=== PATIENT | male | born 1940 | race Caucasian/White ===

== ENCOUNTER 2024-10-11 07:25 | Day surgery (SDC) | payer MEDICARE, BC ==
[2024-10-11] MEDS: Lactated Ringers 1,000 ML IV SCH (07:48)
[2024-10-11] MEDS ORDERED: Propofol 200 MG/20 ML SDV ONE ×3 (08:26→10:12)
[2024-10-11] MEDS ORDERED: Midazolam 1 MG/ML 2 ML SDV ONE (09:15)
[2024-10-11] MEDS ORDERED: fentaNYL 100 MCG/2 ML SDV ONE (09:15)
[2024-10-11] MEDS ORDERED: Lidocaine 4% 5 ML Amp ONE (09:15)
[2024-10-11] MEDS ORDERED: ePHEDrine 50 MG/ML SDV ONE (10:00)
[2024-10-11] MEDS ORDERED: Simethicone Drops 40 MG/0.6 ML 30 ML Bottle ONE (10:01)
[2024-11-08] MEDS ORDERED: Lactated Ringers 1,000 ML IV SCH (07:00)
== END 2024-10-11 13:47 | disposition home or self-care (01) ==
LOC: VM.SDS 07:25
PROVIDERS: ATTEND Family Medicine
DX: Z12.11 Encounter for screening for malignant neoplasm of colon (principal); K29.50 Unspecified chronic gastritis without bleeding; K57.30 Diverticulosis of large intestine without perforation or abscess without bleeding; K44.9 Diaphragmatic hernia without obstruction or gangrene; I10 Essential (primary) hypertension; I48.0 Paroxysmal atrial fibrillation; I49.5 Sick sinus syndrome; Z88.5 Allergy status to narcotic agent; Z79.899 Other long term (current) drug therapy; Z86.0100 Personal history of colon polyps, unspecified
CPT/HCPCS: 00813; 88305; 88342; 99100; A9270-GY; J2250; J2704; J3010; J3490; J7120